=== PATIENT | female | born 1985 | race Caucasian/White ===

== ENCOUNTER → 2020-12-13 08:23 | Outpatient (CLI) | payer OTHER, SELFPAY ==
[2020-12-13 09:08] LABS: Add Manual Diff / Slide Review NO; Basophils Absolute Auto 0 /uL (0-100); Basophils Percent Auto 0.3 % (0-2); Eosinophils Absolute Auto 0 /uL (0-450); Eosinophils Percent Auto 0.7 % (2-4); Hemoglobin 13.7 g/dL (12.0-16.0); Lymphocytes Absolute Auto 1200 /uL (1100-4500); Lymphocytes Percent Auto 17.7 % (25-40); Mean Corpuscular HGB Conc 34.3 % (30-36); Mean Corpuscular Hemoglobin 32.4 PG (26-34); Mean Corpuscular Volume 94.4 fL (80-100); Monocytes Absolute Auto 400 /uL (0-900); Monocytes Percent Auto 6.4 % (3-14); Neutrophils Absolute Auto 5100 /uL (1500-7000); Neutrophils Percent Auto 74.9 % (50-75); Platelet Count 259 X10^3/uL (150-400); Red Blood Cell Count 4.23 X10^6/uL (4.0-5.2); Red Cell Distribution Width 12.1 % (11.6-14.8); White Blood Cell Count 6.8 X10^3/uL (4.5-11.0)
[2020-12-13 09:47] LABS: Alanine Aminotransferase 15 IU/L (<35); Albumin 3.9 g/dL (3.5-5.0); Albumin Globulin Ratio 1.6 (1.0-2.8); Alkaline Phosphatase 73 U/L (38-126); Aspartate Aminotransferase 29 IU/L (14-36); BUN Creatinine Ratio 11.1 (6-22); Bilirubin Total 0.7 mg/dL (0.2-1.3); Blood Urea Nitrogen 6 mg/dL (7-17); Calcium 8.7 mg/dL (8.4-10.2); Carbon Dioxide 29 mmol/L (22-32); Chloride 95 mmol/L (98-107); Cholesterol 113 mg/dL (140-199); Estimated Glomerular Filt Rate > 60.0 mL/min (>60); Globulin 2.4 g/dL (1.7-4.1); Glucose 82 mg/dL (70-100); HDL Cholesterol 60 mg/dL (40-60); HEMOLYSIS < 15 (0-50); LDL Cholesterol Calculated 47 mg/dL (<100); Potassium 3.9 mmol/L (3.4-5.1); Sodium 126 mmol/L (137-145); Total Protein 6.3 g/dL (6.3-8.2); Triglycerides 29 mg/dL (35-150)
== END ==
PROVIDERS: PCP Registered Nurse; Referring Provider Registered Nurse; Visit Provider Registered Nurse
DX: Z00.00 Encounter for general adult medical examination without abnormal findings (principal); Z82.49 Family history of ischemic heart disease and other diseases of the circulatory system
CPT/HCPCS: 36415; 80053; 80061; 85025

== ENCOUNTER → 2021-11-24 18:36 | Outpatient (CLI) | payer OTHER, SELFPAY | PROVIDERS: PCP Registered Nurse; Visit Provider Physician Assistant | DX: N39.0 Urinary tract infection, site not specified (principal) | CPT/HCPCS: 87077; 87086; 87186 ==

== ENCOUNTER → 2022-07-13 15:00 | Outpatient (CLI) | payer OTHER, SELFPAY ==
[2022-07-13 15:43] LABS: Add Manual Diff / Slide Review NO; Basophils Absolute Auto 0 /uL (0-100); Basophils Percent Auto 0.3 % (0-2); Eosinophils Absolute Auto 100 /uL (0-450); Hematocrit 42.9 % (36-46); Hemoglobin 14.7 g/dL (12.0-16.0); Lymphocytes Absolute Auto 1800 /uL (1100-4500); Lymphocytes Percent Auto 21.1 % (25-40); Mean Corpuscular HGB Conc 34.4 % (30-36); Mean Corpuscular Hemoglobin 32.8 PG (26-34); Mean Corpuscular Volume 95.3 fL (80-100); Monocytes Absolute Auto 500 /uL (0-900); Neutrophils Absolute Auto 6200 /uL (1500-7000); Neutrophils Percent Auto 71.6 % (50-75); Platelet Count 285 X10^3/uL (150-400); Red Cell Distribution Width 12.6 % (11.6-14.8); White Blood Cell Count 8.7 X10^3/uL (4.5-11.0)
[2022-07-13 15:52] LABS: Appearance Urine UA SL CLOUDY; Bilirubin Urine UA NEGATIVE (NEGATIVE); Color Urine UA YELLOW; Glucose Urine UA NEGATIVE (Negative); Ketones Urine UA NEGATIVE (NEGATIVE); Leukocyte Esterase Urine UA NEGATIVE (NEGATIVE); Nitrite Urine UA NEGATIVE (Negative); Occult Blood Urine UA NEGATIVE (Negative); Protein Urine UA NEGATIVE (Negative); Specific Gravity Urine UA 1.015 (1.000-1.035); Urobilinogen Urine UA 0.2 E.U./dL (0.2)
[2022-07-13 15:59] LABS: pH Urine UA 7.5 (4.5-8.0)
[2022-07-13 16:12] LABS: Alanine Aminotransferase 16 IU/L (<35); Albumin 4.6 g/dL (3.5-5.0); Albumin Globulin Ratio 1.5 (1.0-2.8); Alkaline Phosphatase 73 U/L (38-126); Aspartate Aminotransferase 28 IU/L (14-36); BUN Creatinine Ratio 14.8 (6-22); Bilirubin Total 0.5 mg/dL (0.2-1.3); Blood Urea Nitrogen 9 mg/dL (7-17); Calcium 8.7 mg/dL (8.4-10.2); Carbon Dioxide 27 mmol/L (22-32); Chloride 104 mmol/L (98-107); Estimated Glomerular Filt Rate > 60 mL/min (>60); Glucose 64 mg/dL (70-100); HEMOLYSIS < 15 (0-50); Potassium 3.8 mmol/L (3.4-5.1); Sodium 138 mmol/L (137-145); Total Protein 7.6 g/dL (6.3-8.2)
[2022-07-13 16:15] LABS: Bacteria Urine None Seen; Culture Indicated Urine Cult Not Indicated; RBC Urine None Seen (0-5/HPF); Squamous Epithelial Cell Urine 1-5 /HPF (0-5/HPF); WBC Urine None Seen (0-5/HPF)
[2022-07-13 16:48] LABS: TSH w/ Reflex to FT4 2.58 uIU/mL (0.47-4.68)
== END ==
PROVIDERS: PCP Pediatrics; Referring Provider Pediatrics; Visit Provider Pediatrics
DX: Z00.00 Encounter for general adult medical examination without abnormal findings (principal); R63.1 Polydipsia
CPT/HCPCS: 36415; 80053; 81001; 84443; 85025

== ENCOUNTER → 2024-01-03 16:34 | Outpatient (CLI) | payer OTHER, SELFPAY ==
[2024-01-03 17:36] LABS: Add Manual Diff / Slide Review NO; Basophils Absolute Auto 0 /uL (0-100); Basophils Percent Auto 0.5 % (0-2); Eosinophils Absolute Auto 100 /uL (0-450); Eosinophils Percent Auto 1.5 % (2-4); Hematocrit 41.5 % (36-46); Hemoglobin 14.2 g/dL (12.0-16.0); Lymphocytes Absolute Auto 2200 /uL (1100-4500); Mean Corpuscular HGB Conc 34.2 % (30-36); Mean Corpuscular Volume 93.6 fL (80-100); Monocytes Absolute Auto 600 /uL (0-900); Monocytes Percent Auto 7.6 % (3-14); Neutrophils Absolute Auto 4700 /uL (1500-7000); Neutrophils Percent Auto 61.4 % (50-75); Platelet Count 283 X10^3/uL (150-400); Red Blood Cell Count 4.44 X10^6/uL (4.0-5.2); Red Cell Distribution Width 12.8 % (11.6-14.8); White Blood Cell Count 7.6 X10^3/uL (4.5-11.0)
[2024-01-03 18:36] LABS: Alanine Aminotransferase 16 IU/L (<35); Albumin 4.5 g/dL (3.5-5.0); Albumin Globulin Ratio 1.6 (1.0-2.8); Alkaline Phosphatase 60 U/L (38-126); Aspartate Aminotransferase 26 IU/L (14-36); BUN Creatinine Ratio 17.6 (6-22); Bilirubin Total 0.6 mg/dL (0.2-1.3); Blood Urea Nitrogen 13 mg/dL (7-17); Calcium 9.2 mg/dL (8.4-10.2); Carbon Dioxide 28 mmol/L (22-32); Chloride 102 mmol/L (98-107); Estimated Glomerular Filt Rate > 60 mL/min (>60); Globulin 2.9 g/dL (1.7-4.1); Glucose 83 mg/dL (70-100); HEMOLYSIS < 15 (0-50); Sodium 135 mmol/L (137-145); Total Protein 7.4 g/dL (6.3-8.2)
[2024-01-03 18:59] LABS: TSH w/ Reflex to FT4 3.31 uIU/mL (0.47-4.68)
== END ==
PROVIDERS: PCP Family Medicine; Referring Provider Family Medicine; Visit Provider Family Medicine
DX: Z00.00 Encounter for general adult medical examination without abnormal findings (principal); E04.1 Nontoxic single thyroid nodule
CPT/HCPCS: 36415; 80053; 84443; 85025

== ENCOUNTER 2024-03-30 07:43 | Day surgery (SDC) | payer OTHER, SELFPAY ==
[2024-03-26 10:00] VITALS: BMI 25.8
--- NOTE | 2024-03-30 | PATH_ITS ---
[facility] Accession Number: [id number] No. of containers..02 Tissue . 01 Material submitted: . PART A: endocervix - ENDOCERVICAL CURETTINGS PART B: endometrium - ENDOMETRIAL CURETTINGS . 01 Diagnosis: A. ENDOCERVICAL CURETTINGS: Portions of inflamed endocervical tissue and scant, detached strips of endocervical glandular epithelium; negative for glandular dysplasia or malignancy. Detached squames with reactive features. . B. ENDOMETRIAL CURETTINGS: Portions of endometrial tissue with patchy mucinous metaplasia, focal changes suggestive of benign placental site nodule, and scant non-psammomatous calcifications. No glandular hyperplasia, cytologic atypia, or malignancy identified. Portions of myometrium; negative for significant atypia. MRV 04/06/2024 1512 Local . 01 Electronically signed: . Hawa Alvarenga MD, Pathologist NPI- [id number] . 01 Gross description: . A. Received in formalin with two identifiers and endocervical curettings, are multiple hogan to red-brown soft tissue fragments aggregating to 0.5 x 0.5 x 0.1 cm. Filtered and submitted entirely in A1. B. Received in formalin with two identifiers and endometrial curettes, are multiple hogan soft tissue fragments admixed with mucohemorrhagic material aggregating to 1.3 x 1.0 x 0.2 cm. Filtered and submitted entirely in B1. ([id number]) /MRV 04/04/2024 1903 Local . 01 Microscopic: . . . 01 Pathologist provided ICD-10: N85.00 . 01 CPT . 942215, 050740 Specimen Comment: A courtesy copy of this report has been sent to [phone] Performed at: 01 [facility] [address], [place], [place] [id number] MD Raymundo Brandt MD Phone: [phone]
[2024-03-30 08:07] VITALS: BMI 24.6
[2024-03-30] MEDS: SCOPOLAMINE 1 PATCH TOP (08:16)
[2024-03-30] MEDS: LACTATED RINGERS 1,000 ML 42 ML IV (08:17)
[2024-03-30 08:27] VITALS: BP 108/64; PULSE 67; RESP 16; TEMP 37.1; O2SAT 100
--- NOTE | 2024-03-30 09:40 | PM.PREOP ---
Pre-operative Note COVID-19 COVID-19 status: Not tested Interval Note History & Physical reviewed/Exam performed by Physician: Yes Changes to H&P: No
--- NOTE | 2024-03-30 09:52 | SUR.OPER ---
Lithotomy on padded OR bed, head on pillow, arms secured on padded arm boards at <90 degrees abduction. Legs secured in padded yellow fins stirrups.
[2024-03-30] MEDS: ACETAMINOPHEN IV 1,000 MG/100 ML VIAL 400 MG IV (09:55)
[2024-03-30] MEDS: SILVER NITRATE STICK 1 EACH TOP (10:02)
--- NOTE | 2024-03-30 10:07 | PM.GYNOP.1 ---
Operative Date/Time/Diagnoses Date of procedure: 03/30/24 Time of procedure: 09:30 Pre-op diagnosis: Menorrhagia Intrauterine device in place Post-op diagnosis: same Procedure & Clinicians Procedure: Procedures Operation Date: 03/30/24 09:15 Actual Procedure Side Surgeon p Hysteroscopy, D&C of the uterus, Novasure Endometrial Ablation s Removal of IUD Nathaniel Lackey MD Indications: Luis Manuel is a 38-year-old whose last menstrual period was in November 2023 presented for discussion about possibly removing her IUD and performing an endometrial ablation. She has had Mirenas previously heavy periods with her most recent Mirena inserted about 2 years ago. She is currently having sporadic episodes of light bleeding but no regular menses. She has had a tubal ligation. 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 Her most recent pelvic ultrasound was performed at [facility] on 02/06/2024 and showed the uterus anteverted and normal in size measuring 8.9 x 4.3 x 3.4 cm. The myometrium is described as homogeneous. The endometrium measures 2.0 mm in combined thickness and an intrauterine device is seen in the expected central position. Ovaries each have less than 12 follicles in each ovary and no adnexal masses were seen. The right ovary measures 2.8 x 2.7 x 1.6 cm with a calculated ovarian volume of 6.0 cc. The left ovary measures 2.4 x 2.0 x 2.7 cm with a calculated ovarian volume of 7 cc. No pathologic free abdominal or pelvic fluid was noted. Options for evaluation and treatment of the patient's menorrhagia were discussed at length. Patient is concerned that the presence of the IUD may be contributing to her cyst formation and therefore would like to have IUD removed at the same time that she has an endometrial ablation performed. Endometrial thickness is only 2 mm and there were no focal lesions in the endometrial cavity therefore endometrial sampling is not indicated pre-ablation. Patient has a prior sterilization procedure and would very much like to move forward with endometrial ablation. Patient is aware however that removal of her IUD and performance an endometrial ablation may or may not improve what sounds like recurrent follicular cyst formation in her ovaries. We discussed the possibility of using continuous oral contraceptives to suppress ovarian cyst formation with the patient is averse to the idea of systemic hormone medications which is understandable. She presents today for her scheduled surgery. Surgeon: Nathaniel Lackey Anesthesia Type: General Operative Notes Findings: Normal endometrial cavity with thin, unremarkable endometrium. Both tubal ostia visualized. Post ablation hysteroscopy demonstrates excellent ablated effect. Closure Type: not applicable Specimen(s): endometrial curettings and other (Endocervical curettings) Estimated blood loss (mL): 5 Blood products transfused: none Procedure in detail: With the patient under general LMA in the modified dorsal lithotomy position, the perineum, vagina, and lower abdomen were prepped and draped in the usual fashion for hysteroscopy with endometrial ablation. A pre-surgical safety time-out was then taken in accordance with [facility] OR protocols. A bivalve speculum was inserted in the vagina and the cervix visualized. The anterior lip of the cervix was grasped with a single-tooth tenaculum and the endocervical canal was then dilated to 6 mm diameter. Hysteroscope was placed through the endocervical canal into the endometrial cavity and the cavity was visualized. There were no localized abnormalities within the endometrial cavity and the endometrium itself was unremarkable. Both tubal ostia were visualized. The hysteroscope was then withdrawn and a fractional dilation and curettage was accomplished with separate pathologic specimen submitted for the endometrial and endocervical curettings. The uterine cavity was then sounded with the NovaSure device and found to be 5.5 cm in depth. The NovaSure device was then inserted through the endocervical canal into the endometrial cavity and the width of the cavity determined to be 3.0 cm. Cavity integrity test demonstrated the cavity to be intact and ablation was initiated. Ablation time was 50 seconds with power utilized 91 w. The NovaSure device was then removed from the endometrial cavity and hysteroscopy demonstrated excellent ablation effect. The tenaculum was then removed from the anterior lip of the cervix and no bleeding was encountered. The speculum was then removed from the vagina and the patient awakened from anesthesia. She was then transferred to the PACU for a period of observation and recovery having tolerated the procedure well. Complications: none Post-operative Condition: stable Disposition: PACU Plan for aftercare: Routine post-op care.
[2024-03-30 10:12] VITALS: BP 99/41; PULSE 62; RESP 14; TEMP 36.2; O2SAT 95
[2024-03-30 10:16] VITALS: BP 94/46; PULSE 59; RESP 14; O2SAT 97
[2024-03-30 10:21] VITALS: BP 103/53; PULSE 69; RESP 20; O2SAT 100
[2024-03-30 10:27] VITALS: BP 106/61; PULSE 67; RESP 18; O2SAT 100
== END 2024-03-30 10:52 | disposition home or self-care (01) ==
PROVIDERS: PCP Family Medicine; Referring Provider Obstetrics & Gynecology; Visit Provider Obstetrics & Gynecology
PROC: 0U5B8ZZ Destruction of Endometrium, Via Natural or Artificial Opening Endoscopic (ICD-10-PCS; CPT 58563; principal; 2024-03-30 09:15)
DX: N92.1 Excessive and frequent menstruation with irregular cycle (principal); Z30.432 Encounter for removal of intrauterine contraceptive device; N85.8 Other specified noninflammatory disorders of uterus
CPT/HCPCS: 58563; 58301; 81025; J0136; J1100; J1885; J2405; J2704; J3010

== ENCOUNTER 2024-05-03 14:25 | Day surgery (SDC) | payer OTHER, SELFPAY ==
--- NOTE | 2024-05-03 | PATH_ITS ---
[facility] Accession Number: [id number] No. of containers..01 Tissue . 01 Material submitted: . rectum - RECTUM POLYP . 01 Diagnosis: RECTUM POLYP: Colonic mucosa with benign lymphoid aggregate. No neoplasm identified. [facility] 05/10/2024 1156 Local . 01 Electronically signed: . Raymundo Brandt MD, Pathologist NPI- [id number] . 01 Gross description: . Received in formalin with two patient identifiers and designated rectum polyp, and consists of two hogan-white friable tissue fragments measuring 0.2 and 0.3 cm in greatest dimension. The specimens are entirely submitted in cassette A1. ([id number]) /MRV 05/10/20241155 Local . 01 Pathologist provided ICD-10: K63.89 . 01 CPT . 204851 Specimen Comment: A courtesy copy of this report has been sent to [phone] Performed at: 01 [facility] [address], [place], [place] [id number] MD Raymundo Brandt MD Phone: [phone]
[2024-05-03 14:56] VITALS: BP 105/57; PULSE 68; RESP 16; TEMP 36.9; O2SAT 100
[2024-05-03] MEDS: LACTATED RINGERS 1,000 ML 42 ML IV ×2 (15:06→16:44)
--- NOTE | 2024-05-03 15:49 | PM.HP.1 ---
History of Present Illness History of Present Illness Date Patient Seen: 05/03/24 Time Patient Seen: 15:49 [place] [facility] [place]arrative: Luis Manuel is a 38-year-old woman who has bleeding and prolapsing internal hemorrhoids. Please see the office note from January for details. [facility] Medical History (Updated 03/26/24 @ 10:08 by Maine Cooper RN) Superficial venous thrombosis of left arm (11/07/23) Breast nodule Personal history of other endocrine, nutritional and metabolic disease Annual physical exam Increased thirst Migraines (~2010) Shoulder pain (~2002) Finger fracture (~2014) Foot pain (~2006) Chicken pox (~1984) Tinnitus (~2002) Painful menstrual periods (~2012) Irregular menstrual cycle (~2012) Abnormal Pap smear of cervix Hemorrhoid (~2002) GERD (gastroesophageal reflux disease) (~2002) Murmur Surgical History Anesthesia History of section (~12/14/10) History of section (~08/27/13) History of umbilical hernia repair (~2013) History of augmentation of both breasts (~10/17/17) Family History Father Mental health problem Stroke Alcoholic Sister Mental health problem Anxiety Grandfather History of heart disease Hypertension Hyperlipidemia Grandmother Mental health problem Hyperlipidemia Dementia Grandfather Cancer Grandmother Mental health problem Hyperlipidemia Fibromyalgia Social History household members: spouse and children Smoking Status: Never smoker second hand exposure: No alcohol intake: current substance use type: does not use Meds Home Medications and Allergies Home Medications Medication Instructions Recorded Confirmed Type No Known Home Medications 05/03/24 05/03/24 History Allergies Allergy/AdvReac Type Severity Reaction Status Date / Time No Known Drug Allergies Allergy Verified 03/30/24 08:05 Exam Vital Signs (past 8 hours): - 05/03/24 14:56 Temperature 98.4 F Pulse Rate 68 Respiratory Rate 16 Blood Pressure 105/57 L Pulse Oximetry 100 Oxygen Delivery Method Room Air Oxygen Delivery Method Room Air Const General: healthy appearing Assessment & Plan Assessment and plan (1) Rectal bleeding: Status: Acute Plan We will plan to proceed with colonoscopy and rubber-band ligation of internal hemorrhoids.
--- NOTE | 2024-05-03 17:03 | PM.OP.COLON ---
Operative Date/Time/Diagnoses Date of procedure: 05/03/24 Time of procedure: 17:03 Pre-op diagnosis: Internal hemorrhoids and rectal bleeding Post-op diagnosis: same Procedure & Clinicians Study performed: Colonoscopy Rubber-band ligation Same procedure as scheduled: Yes Surgeon: Gabriel Dowell Procedure Notes Procedure in detail: Surgeon: Gabriel Dowell MD Anesthesia: Les Worthington D.O. Procedure: The patient was brought to the endoscopy suite, placed in left lateral decubitus position. The patient was connected to monitoring devices. A time-out was performed. Sedation was administered. Once the patient was adequately sedated, a digital rectal exam was performed and was normal. The scope was then inserted and advanced to the cecum where the appendiceal orifice was identified and photographed. The scope was then slowly withdrawn over greater than 6 minutes. The mucosa was thoroughly inspected. No abnormalities were found. The scope was retroflexed in the rectum. Significant internal hemorrhoids were noted. The scope was straightened and removed. Two hemorrhoidal columns were rubber-band ligated using the anoscope and rubber band applicator. The largest hemorrhoidal colon could not be rubber-band ligated due to its size. The patient was awakened and brought to recovery. Scope withdrawal time: 9 minutes Sedation time: 18 minutes EBL: 2 mL Findings: Internal hemorrhoids Post-procedure Recommendations: Colonoscopy in 10 years Disposition: PACU
[2024-05-03 17:06] VITALS: BP 96/48; PULSE 81; RESP 15; TEMP 36.4; O2SAT 99
[2024-05-03 17:12] VITALS: BP 96/50; PULSE 79; RESP 14; O2SAT 100
[2024-05-03 17:17] VITALS: BP 98/86; PULSE 75; RESP 16; O2SAT 100
== END 2024-05-03 17:35 | disposition home or self-care (01) ==
PROVIDERS: PCP Family Medicine; Referring Provider Surgery; Visit Provider Surgery
PROC: 0DJD8ZZ Inspection of Lower Intestinal Tract, Via Natural or Artificial Opening Endoscopic (ICD-10-PCS; CPT 45378; principal; 2024-05-03 13:45)
DX: K62.5 Hemorrhage of anus and rectum (principal); K64.8 Other hemorrhoids
CPT/HCPCS: 46221; J2704

== ENCOUNTER 2024-07-10 06:30 | Day surgery (SDC) | payer OTHER, SELFPAY ==
[2024-07-05 14:54] VITALS: BMI 25.8
--- NOTE | 2024-07-10 | PATH_ITS ---
[facility] Accession Number: [id number] No. of containers..01 Tissue . 01 Material submitted: . hemorrhoids - RIGHT POSTERIOR HEMORRHOID COLUMN . 01 Diagnosis: RIGHT POSTERIOR HEMORRHOID COLUMN: Benign hemorrhoid tissue involving squamocolumnar junction. No dysplasia identified. [facility] 07/13/2024 1342 Local . 01 Electronically signed: . Raymundo Brandt MD, Pathologist NPI- [id number] . 01 Gross description: . Received in formalin with two patient identifiers and right posterior hemorrhoid colum, is a hogan to brown fragment of possible wrinkled skin and mucosa 3.8 x 2.4 x 1.6 cm. Inked blue and sectioned to reveal a hogan cut surface with grossly dilated vasculature. Contact Lens Assistant sections submitted in cassette A1. ([id number]) /[facility] 07/13/2024 1342 Local . 01 Pathologist provided ICD-10: K64.9 . 01 CPT . 269416 Specimen Comment: A courtesy copy of this report has been sent to [phone] Performed at: 01 [facility] [address], [place], [place] [id number] MD Raymundo Brandt MD Phone: [phone]
[2024-07-10 06:43] VITALS: BP 114/62; PULSE 71; RESP 16; TEMP 36.4; O2SAT 100; BMI 25.4
[2024-07-10] MEDS: ACETAMINOPHEN 325 MG TABLET 975 MG PO (07:01)
[2024-07-10] MEDS: LACTATED RINGERS 1,000 ML 42 ML IV (07:03)
--- NOTE | 2024-07-10 07:47 | PM.HP.1 ---
History of Present Illness History of Present Illness Date Patient Seen: 07/10/24 Time Patient Seen: 07:47 Chief complaint: [facility] [place] Narrative: Luis Manuel is a 39 year old woman who has significant prolapsing internal hemorrhoids not amenable to medical treatment or rubber band ligation. See prior office notes and colonoscopy report for more details. [facility] Medical History (Updated 03/26/24 @ 10:08 by Maine Cooper RN) Superficial venous thrombosis of left arm (11/07/23) Breast nodule Personal history of other endocrine, nutritional and metabolic disease Annual physical exam Increased thirst Migraines (~2010) Shoulder pain (~2002) Finger fracture (~2014) Foot pain (~2006) Chicken pox (~1984) Tinnitus (~2002) Painful menstrual periods (~2012) Irregular menstrual cycle (~2012) Abnormal Pap smear of cervix Hemorrhoid (~2002) GERD (gastroesophageal reflux disease) (~2002) Murmur Surgical History (Updated 07/10/24 @ 06:38 by Adry Kitchen RN) H/O tubal ligation History of colonoscopy (05/03/24) History of hysteroscopy (03/30/24) Anesthesia History of section (~12/14/10) History of section (~08/27/13) History of umbilical hernia repair (~2013) History of augmentation of both breasts (~10/17/17) Family History Father Mental health problem Stroke Alcoholic Sister Mental health problem Anxiety Grandfather History of heart disease Hypertension Hyperlipidemia Grandmother Mental health problem Hyperlipidemia Dementia Grandfather Cancer Grandmother Mental health problem Hyperlipidemia Fibromyalgia Social History household members: spouse and children Smoking Status: Never smoker second hand exposure: No alcohol intake: current substance use type: does not use Meds Home Medications and Allergies Home Medications Medication Instructions Recorded Confirmed Type No Known Home Medications 05/03/24 07/10/24 History Allergies Allergy/AdvReac Type Severity Reaction Status Date / Time No Known Drug Allergies Allergy Verified 07/10/24 06:39 Exam Vital Signs (past 8 hours): - 07/10/24 06:43 Temperature 97.6 F Pulse Rate 71 Respiratory Rate 16 Blood Pressure 114/62 Pulse Oximetry 100 Oxygen Delivery Method Room Air Oxygen Delivery Method Room Air Const General: No acute distress Resp Effort & Inspection: normal respiratory effort Assessment & Plan Assessment and plan (1) Rectal bleeding: Status: Acute Plan Luis Manuel is a 39 year old woman with significant prolapsing internal hemorrhoids. We reviewed the risks and benefits and will proceed with excisional hemorrhoidectomy in the OR. Time-Based Coding :: [TOTAL MINUTES] spent with patient and on the chart (including review of chart, obtaining history, exam, reviewing outside data, placing orders, documenting exam and treatment plan, and counseling patient) on [DATE].
[2024-07-10] MEDS: BUPIVACAINE 0.25% (PF) VIAL 30 ML INJ (08:07)
[2024-07-10] MEDS: BUPIVACAINE LIPOSOME 266 MG/20 ML VIAL INJ (08:07)
--- NOTE | 2024-07-10 08:09 | SUR.OPER ---
Lithotomy on padded OR bed, head on pillow, arms secured on padded arm boards at <90 degrees abduction. Legs secured in padded yellow fins stirrups.
[2024-07-10 08:36] VITALS: BP 107/68; PULSE 71; RESP 20; TEMP 36.3; O2SAT 95
--- NOTE | 2024-07-10 08:38 | PM.OP.1 ---
Operative Date/Time/Diagnoses Date of procedure: 07/10/24 Time of procedure: 08:38 Pre-op diagnosis: Internal hemorrhoids Post-op diagnosis: same Procedure & Clinicians Procedure: Excisional hemorrhoidectomy Same procedure as scheduled: Yes Surgeon: Gabriel Dowell Brassiere Cup Mold Cutter: Joseph Guevara Anesthesia Type: General Operative Notes Procedure in detail: The patient is a 39-year-old woman with significant prolapsing internal hemorrhoids. She was consented for excisional hemorrhoidectomy. The patient was brought to the operating room and general anesthesia was induced. No antibiotics were indicated. She was positioned in lithotomy and the perineum was prepped and draped in the usual fashion. A time-out was performed. We started with a digital rectal exam using a well lubricated finger. Then two fingers were inserted to gradually dilate the anal sphincter muscle. Next, a well lubricated small Hill-Larson retractor was inserted and the anal canal was examined. It was evident that there was one predominant hemorrhoidal column in the right posterior location. This was grasped with an Allis clamp to elevated off the sphincter muscle. The skin and mucosa was scored with cautery to gabriel out the border. Cautery was used to carefully dissect the hemorrhoid off the underlying sphincter muscle. We then closed the wound with a running 0 chromic suture. Additional local was injected around the wound. Hemostasis was noted. We then inserted a well lubricated roll of Gelfoam gauze into the anal canal. Sterile dressings were applied. Specimen: Right posterior hemorrhoidal column EBL: 10 mL Post-operative Condition: stable Disposition: PACU
[2024-07-10 08:41] VITALS: BP 104/59; PULSE 61; RESP 16; O2SAT 100
[2024-07-10 08:51] VITALS: BP 99/57; PULSE 64; RESP 19; TEMP 36.2; O2SAT 100
== END 2024-07-10 09:11 | disposition home or self-care (01) ==
PROVIDERS: PCP Family Medicine; Referring Provider Surgery; Visit Provider Surgery
PROC: (CPT 46255; principal; 2024-07-10 07:45)
DX: K64.9 Unspecified hemorrhoids (principal)
CPT/HCPCS: 46255; C9290; J1100; J1885; J2405; J2704; J3010

== ENCOUNTER 2024-07-12 05:25 | Emergency (ER) | payer OTHER, SELFPAY ==
[2024-07-12] VITALS (10 sets, daily range): BP systolic 103–119; BP diastolic 51–57; PULSE 68–84; RESP 15–30; TEMP 36.6; O2SAT 98–100; BMI 25.4
--- NOTE | 2024-07-12 05:34 | ED.GENADULT ---
HPI - General Adult <DO Wilver Lilly Last Filed: 07/12/24 06:45> General Chief complaint: Syncope Stated complaint: passed out, had an hemorroid ectomey done Time Seen by Provider: 07/12/24 05:32 Source: patient, RN notes reviewed and old records reviewed Mode of arrival: Family Vehicle Limitations: no limitations History of Present Illness HPI narrative: 39 year old female with excisional hemorrhoidectomy on the morning of 07/10/2024, patient states was doing well until about 1:00 a.m. this morning felt like she had had a bowel movement had from the rectum blood and then which he was the bathroom. Patient states after she had a bowel movement she states was had minimal stool she went to get up and passed out. She states she does not remember hitting floor. Was out briefly. Patient states has not had any more episodes but has felt dizzy. She states she has had several more episodes of bleeding from the rectum. She states she has a little bit of pain she has been taking Tylenol and ibuprofen for pain management. Patient states no fevers, no chest pain or shortness of breath. No nausea or vomiting. She states no vaginal bleeding, no urinary symptoms. States has not had any solid or formed bowel movements. Patient states she has had prior banding then had excisional hemorrhoidectomy Tuesday on the with Dr. Dowell here at [facility]. She has had prior , hernia repair, breast augmentation, tubal ligation. States she has not on any regular daily medications. No known drug allergies. No tobacco, alcohol few times weekly, no recreational drugs. Patient's initial blood pressure was 105 systolic she states she runs about 110 systolic. She is accompanied by her . Related Data Home Medications Medication Instructions Recorded Confirmed No Known Home Medications 05/03/24 07/10/24 Allergies Allergy/AdvReac Type Severity Reaction Status Date / Time No Known Drug Allergies Allergy Verified 07/12/24 05:44 Review of Systems <DO Wilver Lilly Last Filed: 07/12/24 06:45> Review of Systems ROS Unobtainable: All systems reviewed & are unremarkable except as noted in HPI and below Patient History <DO Wilver Lilly Last Filed: 07/12/24 06:45> Medical History Superficial venous thrombosis of left arm (11/07/23) Breast nodule Personal history of other endocrine, nutritional and metabolic disease Annual physical exam Increased thirst Migraines (~2010) Shoulder pain (~2002) Finger fracture (~2014) Foot pain (~2006) Chicken pox (~1984) Tinnitus (~2002) Painful menstrual periods (~2012) Irregular menstrual cycle (~2012) Abnormal Pap smear of cervix Hemorrhoid (~2002) GERD (gastroesophageal reflux disease) (~2002) Murmur Surgical History H/O tubal ligation History of colonoscopy (05/03/24) History of hysteroscopy (03/30/24) Anesthesia History of section (~12/14/10) History of section (~08/27/13) History of umbilical hernia repair (~2013) History of augmentation of both breasts (~10/17/17) Family History Father Mental health problem Stroke Alcoholic Sister Mental health problem Anxiety Grandfather History of heart disease Hypertension Hyperlipidemia Grandmother Mental health problem Hyperlipidemia Dementia Grandfather Cancer Grandmother Mental health problem Hyperlipidemia Fibromyalgia Social History household members: spouse and children Smoking Status: Never smoker second hand exposure: No alcohol intake: current substance use type: does not use Smoking Status: Never smoker alcohol intake frequency: a few times a week Substance Use Type: does not use Exam <Rupali Guzman DO - Last Filed: 07/12/24 06:45> Narrative Exam Narrative: GENERAL: Alert and oriented x three, female in mild distress. HEENT: Head normocephalic, atraumatic, EOMI, pupils reactive, face symmetric, moist mucous membranes NECK: Supple, full range of motion CARDIOVASCULAR: Regular rate and rhythm without murmurs, rubs or gallops. RESPIRATORY: Breath sounds equal bilaterally, no wheezes rales or rhonchi. No tachypnea, no accessory muscle use. ABDOMEN: Soft, nontender. Normoactive bowel sounds all 4 quadrants. No guarding or rebound, rigidity, no mass, visual examination of the rectum, no active bleeding, there is a small external hemorrhoid, there does not appear to be some pink tissue along the edge of her hemorrhoidectomy. Digital rectal exam was deferred as patient is so recently postoperative. EXTREMITIES: Normal range of motion, no clubbing or edema. Neurovascularly intact NEUROLOGICAL: Cranial nerves II through XII grossly intact. Moving all extremities SKIN: Warm, dry, no petechiae, no rashes or lesions. Initial Vital Signs Initial Vital Signs: Vital Signs Temperature 97.8 F 07/12/24 05:38 Pulse Rate 71 07/12/24 05:38 Respiratory Rate 16 07/12/24 05:38 Blood Pressure 105/54 L 07/12/24 05:38 Pulse Oximetry 100 07/12/24 05:38 Oxygen Delivery Method Room Air 07/12/24 05:38 <Harley Cortez DO - Last Filed: 07/12/24 08:47> Initial Vital Signs Initial Vital Signs: Vital Signs Temperature 97.8 F 07/12/24 05:38 Pulse Rate 71 07/12/24 05:38 Respiratory Rate 16 07/12/24 05:38 Blood Pressure 105/54 L 07/12/24 05:38 Pulse Oximetry 100 07/12/24 05:38 Oxygen Delivery Method Room Air 07/12/24 05:38 Course <Rupali Guzman, DO - Last Filed: 07/12/24 06:45> Orders Ordered: ED Orders 07/12/24 05:42 EKG-12 Lead Stat 07/12/24 06:10 CBC Auto Diff [Complete Blood Count AUTO DIFF] Stat CMP [Comprehensive Metabolic Panel] Stat Lipase Stat Type and Screen Stat 07/12/24 08:17 Hemoglobin and Hematocrit Stat Discontinued Medications Sodium Chloride (Normal Saline 0.9%) 1,000 mls @ 1,000 mls/hr IV BOLUS ONE Stop: 07/12/24 06:41 Last Infusion: 07/12/24 08:06 Dose: Infused Documented By: Infusion: 07/12/24 07:48 Dose: 1,000 mls/hr Documented By: Admin: 07/12/24 06:40 Dose: 1,000 mls/hr Documented By: JAVON Ibuprofen (Ibuprofen 400 Mg Tablet) 800 mg PO NOW ONE Stop: 07/12/24 07:56 Last Admin: 07/12/24 08:06 Dose: 400 mg Documented By: SPF Vital Signs Vital signs: Vital Signs - 8 hr 07/12/24 05:38 07/12/24 05:57 07/12/24 06:00 Temperature 97.8 F Pulse Rate 71 74 Respiratory Rate 16 Blood Pressure 105/54 L 106/53 L Pulse Oximetry 100 98 Oxygen Delivery Method Room Air 07/12/24 06:00 07/12/24 06:19 07/12/24 06:19 Temperature Pulse Rate 78 74 Respiratory Rate Blood Pressure 114/53 L Pulse Oximetry 99 99 Oxygen Delivery Method 07/12/24 06:30 07/12/24 06:30 07/12/24 07:00 Temperature Pulse Rate 74 84 Respiratory Rate Blood Pressure 103/51 L Pulse Oximetry 98 100 Oxygen Delivery Method 07/12/24 07:00 07/12/24 07:30 07/12/24 07:30 Temperature Pulse Rate 69 Respiratory Rate Blood Pressure 111/53 L 115/55 L Pulse Oximetry 99 Oxygen Delivery Method Room Air 07/12/24 08:00 07/12/24 08:00 Temperature Pulse Rate 68 Respiratory Rate Blood Pressure 110/56 L Pulse Oximetry 100 Oxygen Delivery Method Room Air <Harley Cortez, - Last Filed: 07/12/24 08:47> Orders Ordered: ED Orders 07/12/24 05:42 EKG-12 Lead Stat 07/12/24 06:10 CBC Auto Diff [Complete Blood Count AUTO DIFF] Stat CMP [Comprehensive Metabolic Panel] Stat Lipase Stat Type and Screen Stat 07/12/24 08:17 Hemoglobin and Hematocrit Stat Discontinued Medications Sodium Chloride (Normal Saline 0.9%) 1,000 mls @ 1,000 mls/hr IV BOLUS ONE Stop: 07/12/24 06:41 Last Infusion: 07/12/24 08:06 Dose: Infused Documented By: Infusion: 07/12/24 07:48 Dose: 1,000 mls/hr Documented By: Admin: 07/12/24 06:40 Dose: 1,000 mls/hr Documented By: JAVON Ibuprofen (Ibuprofen 400 Mg Tablet) 800 mg PO NOW ONE Stop: 07/12/24 07:56 Last Admin: 07/12/24 08:06 Dose: 400 mg Documented By: DIANNA Vital Signs Vital signs: Vital Signs - 8 hr 07/12/24 05:38 07/12/24 05:57 07/12/24 06:00 Temperature 97.8 F Pulse Rate 71 74 Respiratory Rate 16 Blood Pressure 105/54 L 106/53 L Pulse Oximetry 100 98 Oxygen Delivery Method Room Air 07/12/24 06:00 07/12/24 06:19 07/12/24 06:19 Temperature Pulse Rate 78 74 Respiratory Rate Blood Pressure 114/53 L Pulse Oximetry 99 99 Oxygen Delivery Method 07/12/24 06:30 07/12/24 06:30 07/12/24 07:00 Temperature Pulse Rate 74 84 Respiratory Rate Blood Pressure 103/51 L Pulse Oximetry 98 100 Oxygen Delivery Method 07/12/24 07:00 07/12/24 07:30 07/12/24 07:30 Temperature Pulse Rate 69 Respiratory Rate Blood Pressure 111/53 L 115/55 L Pulse Oximetry 99 Oxygen Delivery Method Room Air 07/12/24 08:00 07/12/24 08:00 Temperature Pulse Rate 68 Respiratory Rate Blood Pressure 110/56 L Pulse Oximetry 100 Oxygen Delivery Method Room Air Medical Decision Making <Rupali Guzman, DO - Last Filed: 07/12/24 06:45> Lab Data 07/12/24 08:17 07/12/24 06:10 Labs: Lab Results 07/12/24 07/12/24 Range/Units 06:10 08:17 WBC 9.6 (4.5-11.0) X10^3/uL RBC 3.65 L (4.0-5.2) X10^6/uL Hgb 12.1 10.8 L (12.0-16.0) g/dL Hct 35.0 L 31.1 L (36-46) % MCV 95.7 (80-100) fL MCH 33.0 (26-34) PG MCHC 34.5 (30-36) % RDW 12.6 (11.6-14.8) % Plt Count 254 (150-400) X10^3/uL Neut % (Auto) 87.8 H (50-75) % Lymph % (Auto) 7.2 L (25-40) % Chaves % (Auto) 4.6 (3-14) % Eos % (Auto) 0.2 L (2-4) % Baso % (Auto) 0.2 (0-2) % Neut # (Auto) 8400 H (5349-4094) /uL Lymph # (Auto) 700 L (5462-4867) /uL Chaves # (Auto) 400 (0-900) /uL Eos # (Auto) 0 (0-450) /uL Baso # (Auto) 0 (0-100) /uL Sodium 135 L (137-145) mmol/L Potassium 3.6 (3.4-5.1) mmol/L Chloride 106 (98-107) mmol/L Carbon Dioxide 26 (22-32) mmol/L BUN 7 (7-17) mg/dL Creatinine 0.80 (0.52-1.04) mg/dL Estimated GFR > 60 (>60) mL/min BUN/Creatinine Ratio 8.8 (6-22) Glucose 137 H (70-100) mg/dL Calcium 8.3 L (8.4-10.2) mg/dL Total Bilirubin 0.5 (0.2-1.3) mg/dL AST 28 (14-36) IU/L ALT 19 (<35) IU/L Alkaline Phosphatase 56 (38-126) U/L Total Protein 5.7 L (6.3-8.2) g/dL Albumin 3.5 (3.5-5.0) g/dL Globulin 2.2 (1.7-4.1) g/dL Albumin/Globulin Ratio 1.6 (1.0-2.8) Lipase 63 (23-300) U/L Blood Type O Positive Antibody Screen Negative ECG Data Attestation: I personally reviewed and interpreted this ECG as follows: Prior ECG tracings: available for review Interpretation: Sinus rhythm rate of 68 NH 138 QRS of 94 QTC of 406. No acute ST changes. No prior for comparison. [facility] Narrative Medical decision making narrative: 39-year-old female with excisional hemorrhoidectomy 2 days ago, patient states had bloody bowel movement about 1:00 a.m. this morning has syncopal episode immediately thereafter. Has had several more bloody bowel movements since then. Patient states does feel lightheaded, has some rectal pain but states been tolerating with Tylenol and ibuprofen. Labs EKG is sinus rhythm. No acute st changes. Patient signed out to Dr. Cortez <Harley Cortez DO - Last Filed: 07/12/24 08:47> Lab Data Labs: Lab Results 07/12/24 07/12/24 Range/Units 06:10 08:17 WBC 9.6 (4.5-11.0) X10^3/uL RBC 3.65 L (4.0-5.2) X10^6/uL Hgb 12.1 10.8 L (12.0-16.0) g/dL Hct 35.0 L 31.1 L (36-46) % MCV 95.7 (80-100) fL MCH 33.0 (26-34) PG MCHC 34.5 (30-36) % RDW 12.6 (11.6-14.8) % Plt Count 254 (150-400) X10^3/uL Neut % (Auto) 87.8 H (50-75) % Lymph % (Auto) 7.2 L (25-40) % Chaves % (Auto) 4.6 (3-14) % Eos % (Auto) 0.2 L (2-4) % Baso % (Auto) 0.2 (0-2) % Neut # (Auto) 8400 H (8645-2757) /uL Lymph # (Auto) 700 L (5526-4575) /uL Chaves # (Auto) 400 (0-900) /uL Eos # (Auto) 0 (0-450) /uL Baso # (Auto) 0 (0-100) /uL Sodium 135 L (137-145) mmol/L Potassium 3.6 (3.4-5.1) mmol/L Chloride 106 (98-107) mmol/L Carbon Dioxide 26 (22-32) mmol/L BUN 7 (7-17) mg/dL Creatinine 0.80 (0.52-1.04) mg/dL Estimated GFR > 60 (>60) mL/min BUN/Creatinine Ratio 8.8 (6-22) Glucose 137 H (70-100) mg/dL Calcium 8.3 L (8.4-10.2) mg/dL Total Bilirubin 0.5 (0.2-1.3) mg/dL AST 28 (14-36) IU/L ALT 19 (<35) IU/L Alkaline Phosphatase 56 (38-126) U/L Total Protein 5.7 L (6.3-8.2) g/dL Albumin 3.5 (3.5-5.0) g/dL Globulin 2.2 (1.7-4.1) g/dL Albumin/Globulin Ratio 1.6 (1.0-2.8) Lipase 63 (23-300) U/L Blood Type O Positive Antibody Screen Negative MDM Narrative Medical decision making narrative: 39-year-old female with excisional hemorrhoidectomy 2 days ago, patient states had bloody bowel movement about 1:00 a.m. this morning has syncopal episode immediately thereafter. Has had several more bloody bowel movements since then. Patient states does feel lightheaded, has some rectal pain but states been tolerating with Tylenol and ibuprofen. Labs EKG is sinus rhythm. No acute st changes. Patient signed out to Dr. Diego cortez: Received turned over. Review patient's history and physical exam and workup. Patient ambulated around the emergency department. Stated that she still felt somewhat lightheaded but is much better than what she felt earlier this evening. She did have a bowel movement here in the ER that she states did contain some blood but she was no longer having the continued bleeding like what she had last evening. She did have a drop in her hemoglobin and hematocrit however she did receive fluids during this time. She was not tachycardic. Not hypotensive. Discussed the case with Dr. Dowell on-call with General surgery who was the 1 who did her surgery. He stated that if her vital signs were normal and she was appearing well and her symptoms were improving that she could follow-up as an outpatient. She does have an appointment scheduled for July. Will discharge patient home with return precautions. She expressed understanding and agreement with plan. Discharge Plan Departure Patient Disposition: Home Clinical Impression: Rectal bleeding, S/P hemorrhoidectomy Instructions: Fainting Activity Restrictions/Additional Instructions: Continue to follow all of the postprocedure instructions given to you by Dr. Dowell. Keep all of your scheduled appointments to include the follow-up beginning of next month. Return to the emergency department for new or worsening symptoms. Prescriptions: No Action No Known Home Medications Referrals: Bijan Mcmahan DO [Primary Care Provider] - Stand Alone Forms: Patient Portal/API
--- NOTE | 2024-07-12 05:53 | EKG_ITS ---
[facility] [address] [address] Test Date: 2024-07-12 Pat Name: Luis Manuel Torres Department: [facility] Room: Gender: Female Attendance Officer: NI : 1985 Requested By: Order Number: [id number] Reading MD: Gunnar Cruz MD Measurements Intervals Mcgrath Rate: 68 P: 67 NE: 138 QRS: 77 QRSD: 94 T: 75 QT: 382 QTc: 406 Interpretive Statements Normal sinus rhythm Electronically Signed On 07-12-2024 7:38:55 PDT by Gunnar Cruz MD
[2024-07-12 06:22] LABS: Add Manual Diff / Slide Review NO; Basophils Absolute Auto 0 /uL (0-100); Basophils Percent Auto 0.2 % (0-2); Eosinophils Absolute Auto 0 /uL (0-450); Eosinophils Percent Auto 0.2 % (2-4); Hemoglobin 12.1 g/dL (12.0-16.0); Lymphocytes Absolute Auto 700 /uL (1100-4500); Lymphocytes Percent Auto 7.2 % (25-40); Mean Corpuscular HGB Conc 34.5 % (30-36); Mean Corpuscular Volume 95.7 fL (80-100); Monocytes Absolute Auto 400 /uL (0-900); Monocytes Percent Auto 4.6 % (3-14); Neutrophils Absolute Auto 8400 /uL (1500-7000); Neutrophils Percent Auto 87.8 % (50-75); Platelet Count 254 X10^3/uL (150-400); Red Blood Cell Count 3.65 X10^6/uL (4.0-5.2); Red Cell Distribution Width 12.6 % (11.6-14.8); White Blood Cell Count 9.6 X10^3/uL (4.5-11.0)
[2024-07-12] MEDS: SODIUM CHLORIDE 0.9% 1,000 ML 1000 ML IV (06:40)
[2024-07-12 06:44] LABS: Alanine Aminotransferase 19 IU/L (<35); Albumin 3.5 g/dL (3.5-5.0); Albumin Globulin Ratio 1.6 (1.0-2.8); Alkaline Phosphatase 56 U/L (38-126); Aspartate Aminotransferase 28 IU/L (14-36); BUN Creatinine Ratio 8.8 (6-22); Bilirubin Total 0.5 mg/dL (0.2-1.3); Blood Urea Nitrogen 7 mg/dL (7-17); Calcium 8.3 mg/dL (8.4-10.2); Carbon Dioxide 26 mmol/L (22-32); Chloride 106 mmol/L (98-107); Estimated Glomerular Filt Rate > 60 mL/min (>60); Globulin 2.2 g/dL (1.7-4.1); Glucose 137 mg/dL (70-100); HEMOLYSIS < 15 (0-50); Lipase 63 U/L (23-300); Potassium 3.6 mmol/L (3.4-5.1); Sodium 135 mmol/L (137-145); Total Protein 5.7 g/dL (6.3-8.2)
[2024-07-12] MEDS: IBUPROFEN 400 MG TABLET 800 MG PO (08:06)
[2024-07-12 08:28] LABS: Hematocrit 31.1 % (36-46); Hemoglobin 10.8 g/dL (12.0-16.0)
--- NOTE | 2024-07-12 08:35 | PC.NURSE ---
Pt ambulated around department with minimal complaint of lightheaded, reporting she is feeling much better than her initial arrival post syncopal episode. She used the bathroom and reports having BM with minimal bleeding, has not needed to change her brief while in the department.
== END 2024-07-12 09:13 | disposition home or self-care (01) ==
PROVIDERS: Emergency Medicine; Emergency Provider Emergency Medicine; PCP Family Medicine
DX: K62.5 Hemorrhage of anus and rectum (principal); Z98.890 Other specified postprocedural states
CPT/HCPCS: 36415; 80053; 83690; 85014; 85018; 85025; 86850; 86900; 86901; 93005; 93010; 96360; 99284

== ENCOUNTER → 2024-09-04 11:16 | Outpatient (CLI) | payer OTHER, SELFPAY ==
[2024-09-04 12:02] LABS: Hematocrit 40.5 % (36-46); Hemoglobin 13.7 g/dL (12.0-16.0)
== END ==
PROVIDERS: PCP Family Medicine; Referring Provider Physician Assistant; Visit Provider Physician Assistant
DX: D64.9 Anemia, unspecified (principal)
CPT/HCPCS: 36415; 85014; 85018

== ENCOUNTER 2024-12-09 16:14 | Emergency (ER) | payer OTHER, SELFPAY ==
[2024-12-09 16:28] VITALS: BP 137/62; PULSE 71; RESP 16; O2SAT 100; BMI 26.2
--- NOTE | 2024-12-09 18:33 | DI.RAD.S_ITS ---
PROCEDURE: XR CHEST 1V INDICATIONS: vomiting after FB ingestion TECHNIQUE: One view of the chest was acquired. COMPARISON: None. FINDINGS: Surgical changes and devices: None. Lungs and pleura: On this semiupright portable chest examination, no large pneumothorax or large pleural effusions are seen. No focal infiltrates are seen. Mediastinum: Mediastinal contours appear normal. Heart size is normal. Bones and chest wall: No suspicious bony lesions. Overlying soft tissues appear unremarkable. IMPRESSION: Unremarkable portable chest. Dictated by: Gopi Hatfield M.D. on 12/09/2024 at 18:04 Approved by: Gopi Hatfield M.D. on 12/09/2024 at 18:05
[2024-12-09 18:50] VITALS: BP 121/56; PULSE 75; RESP 16; O2SAT 99
--- NOTE | 2024-12-09 19:15 | ED.RECABL ---
HPI - Recheck/Abnormal Lab/Rx General Chief Complaint: Recheck/Abnormal Lab/Rx Stated Complaint: ate sandwhich with glass shards in it Time Seen by Provider: 12/09/24 18:53 Source: patient Mode of arrival: Ambulatory Limitations: no limitations History of Present Illness HPI narrative: 39-year-old female who is here for evaluation after eating earlier today at a restaurant. States that in her food there appeared to be a piece of a broken plate. She thinks that maybe she swallowed small pieces of the plate. She did go and make herself throw up afterwards. She currently is asymptomatic. Related Data Home Medications Medication Instructions Recorded Confirmed No Known Home Medications 05/03/24 09/04/24 Allergies Allergy/AdvReac Type Severity Reaction Status Date / Time No Known Drug Allergies Allergy Verified 08/01/24 15:59 Review of Systems Review of Systems Narrative: See HPI Patient History Medical History Rectal bleeding Menorrhagia with irregular cycle Superficial venous thrombosis of left arm (11/07/23) Breast nodule Personal history of other endocrine, nutritional and metabolic disease Annual physical exam Increased thirst Migraines (~2010) Shoulder pain (~2002) Finger fracture (~2014) Foot pain (~2006) Chicken pox (~1984) Tinnitus (~2002) Painful menstrual periods (~2012) Irregular menstrual cycle (~2012) Abnormal Pap smear of cervix Hemorrhoid (~2002) GERD (gastroesophageal reflux disease) (~2002) Murmur Surgical History (Updated 07/27/24 @ 00:00 by ) H/O tubal ligation History of colonoscopy (05/03/24) History of hysteroscopy (03/30/24) Anesthesia History of section (~12/14/10) History of section (~08/27/13) History of umbilical hernia repair (~2013) History of augmentation of both breasts (~10/17/17) Family History Father Mental health problem Stroke Alcoholic Sister Mental health problem Anxiety Grandfather History of heart disease Hypertension Hyperlipidemia Grandmother Mental health problem Hyperlipidemia Dementia Grandfather Cancer Grandmother Mental health problem Hyperlipidemia Fibromyalgia Social History household members: spouse and children Smoking Status: Never smoker second hand exposure: No alcohol intake: current substance use type: does not use Smoking Status: Never smoker alcohol intake frequency: a few times a week Exam Initial Vital Signs Initial Vital Signs: Vital Signs Pulse Rate 71 12/09/24 16:28 Respiratory Rate 16 12/09/24 16:28 Blood Pressure 137/62 12/09/24 16:28 Pulse Oximetry 100 12/09/24 16:28 Oxygen Delivery Method Room Air 12/09/24 16:28 Const General: cooperative Resp Effort & Inspection: normal respiratory effort Auscultation: clear to auscultation bilaterally Cardio Rate: regular rate Rhythm: regular rhythm Skin General: no rashes or lesions noted Course Orders Ordered: ED Orders 12/09/24 18:33 XR chest 1V Stat Vital Signs Vital signs: Vital Signs - 8 hr 12/09/24 18:50 Pulse Rate 75 Respiratory Rate 16 Blood Pressure 121/56 L Pulse Oximetry 99 Oxygen Delivery Method Room Air MDM - Recheck/Abnormal Lab/Rx Imaging Data Chest x-ray: Radiologist's Impression: PROCEDURE: XR CHEST 1V INDICATIONS: vomiting after FB ingestion TECHNIQUE: One view of the chest was acquired. COMPARISON: None. FINDINGS: Surgical changes and devices: None. Lungs and pleura: On this semiupright portable chest examination, no large pneumothorax or large pleural effusions are seen. No focal infiltrates are seen. Mediastinum: Mediastinal contours appear normal. Heart size is normal. Bones and chest wall: No suspicious bony lesions. Overlying soft tissues appear unremarkable. IMPRESSION: Unremarkable portable chest. MDM Narrative Medical decision making narrative: No respiratory distress. X-ray shows no signs of perforations. No foreign bodies noted. Provided reassurance. Discussed return precautions. Patient expressed understanding and agreement. Discharge Plan Departure Patient Disposition: Home Clinical Impression: Foreign body ingestion Activity Restrictions/Additional Instructions: You have no restrictions on your activity or diet. If you start to develop pain or fevers please return to the emergency department for further evaluation. Prescriptions: No Action No Known Home Medications Referrals: Bijan Mcmahan DO [Primary Care Provider] - Stand Alone Forms: Patient Portal/API/Survey
== END 2024-12-09 19:21 | disposition home or self-care (01) ==
PROVIDERS: Emergency Provider Emergency Medicine; PCP Family Medicine
DX: T18.9XXA Foreign body of alimentary tract, part unspecified, initial encounter (principal)
CPT/HCPCS: 71045; 99281; 99283